=== PATIENT | female | born 1965 | race Hispanic/Latino ===

== ENCOUNTER → 2021-11-22 | Outpatient (CLI) | payer OTHER ==
[~2021-11-22] MED LIST: BACLOFEN10 MG PO; FAMOTIDINE20 MG PO; LISINOPRIL10 MG PO; MOBIC15 MG PO; OMEPRAZOLE40 MG PO
== END | disposition home or self-care (01) ==
LOC: RAD 08:51 → OR 11-25 08:21 → EDSTATUS 11-25 09:30
PROVIDERS: ATTEND Internal Medicine Gastroenterology
DX: R14.0 Abdominal distension (gaseous) (principal); R10.13 Epigastric pain; Z53.9 Procedure and treatment not carried out, unspecified reason; Z01.810 Encounter for preprocedural cardiovascular examination; Z01.812 Encounter for preprocedural laboratory examination; Z20.822 Contact with and (suspected) exposure to COVID-19
CPT/HCPCS: U0002